=== PATIENT | female | born 1980 | race Caucasian/White ===

== ENCOUNTER 2021-07-02 05:56 | Emergency (ER) | payer OTHER ==
[2021-07-02 06:05] VITALS: BP 114/78; PULSE 70; RESP 18; TEMP 98.3
--- NOTE | 2021-07-02 06:26 | ED ---
General Adult HPI - General Stated complaint: low BP Time Seen by Provider: 07/02/21 05:58 Source: patient, EMS, RN notes reviewed Mode of arrival: EMS Limitations: no limitations - History of Present Illness Initial comments: This a 41-year-old female presents emergency Department from [facility] for concerns of low blood pressure. Patient states that staff attempted to wake her up and she was very drowsy. She states that they try to wake up at 5 AM and states that she has not slept in over 24 hours. Patient denies any headache dizziness shortness of breath as a vomiting diarrhea constipation this time states she is on medications currently to help with her opiate withdrawal. Patient states that she feels very well. Pressure arrival in by EMS within normal limits. Patient states that she's been at [facility] for 24 hours for opiate abuse, rehab. Review of Systems ROS Statement: Those systems with pertinent positive or pertinent negative responses have been documented in the HPI. ROS Other: All systems not noted in ROS Statement are negative. Past Medical History Past Medical History: Thyroid Disorder History of Any Multi-Drug Resistant Organisms: None Reported Past Surgical History: No Surgical Hx Reported Past Psychological History: Anxiety, Depression Smoking Status: Current every day smoker Past Alcohol Use History: Heavy, Occasional Past Drug Use History: Cocaine, Heroin, Marijuana General Exam Limitations: no limitations General appearance: alert, in no apparent distress, other (Vitals reviewed) Head exam: Present: atraumatic, normocephalic, normal inspection Eye exam: Present: normal appearance, PERRL, EOMI. Absent: scleral icterus, conjunctival injection, periorbital swelling ENT exam: Present: normal exam, normal oropharynx, mucous membranes moist Neck exam: Present: normal inspection, full ROM. Absent: tenderness, meningismus, lymphadenopathy Respiratory exam: Present: normal lung sounds bilaterally. Absent: respiratory distress, wheezes, rales, rhonchi, stridor Cardiovascular Exam: Present: regular rate, normal rhythm, normal heart sounds. Absent: systolic murmur, diastolic murmur, rubs, gallop, clicks GI/Abdominal exam: Present: soft, normal bowel sounds. Absent: distended, tenderness, guarding, rebound, rigid Neurological exam: Present: alert, oriented X3 Skin exam: Present: warm, dry, intact, normal color. Absent: rash Course Vital Signs 07/02/21 05:58 Temperature 98.3 F Pulse Rate 70 Respiratory 18 Rate Blood Pressure 114/78 O2 Sat by Pulse 100 Oximetry Medical Decision Making - Medical Decision Making Patient is awake alert and mentating patient doesn't know some stress patient easily converses in the room with no confusion and no complaints. Patient blood pressure within normal limits patient normal blood pressure entire time with [facility] crew. Patient no reported hypotension. Patient will be discharged in stable condition return parameters were discussed. Disposition Clinical Impression: Opiate abuse, continuous, General medical examination Disposition: HOME SELF-CARE Condition: Stable Additional Instructions: Please return to the Emergency Department if symptoms worsen or any other co ncerns. Is patient prescribed a controlled substance at d/c from ED?: No Referrals: Austin Barnes MD [Primary Care Provider] - 1-2 days Time of Disposition: 06:25
== END 2021-07-02 07:00 | disposition home or self-care (01) ==
LOC: EC 05:56
DX: Z00.00 Encounter for general adult medical examination without abnormal findings (principal); F11.10 Opioid abuse, uncomplicated; F12.90 Cannabis use, unspecified, uncomplicated; F17.200 Nicotine dependence, unspecified, uncomplicated
CPT/HCPCS: 99284